=== PATIENT | male | born 1960 | race Caucasian/White ===

== ENCOUNTER 2018-12-01 10:48 | Emergency (ER) | payer MEDICARE ==
[2018-12-01] MEDS ORDERED: Adacel (T-DAP) 0.5 ML SYRINGE ONE (11:10)
== END 2018-12-01 11:20 | disposition home or self-care (01) ==
LOC: BURERS 10:48
DX: S51.811A Laceration without foreign body of right forearm, initial encounter (principal); E78.5 Hyperlipidemia, unspecified; I10 Essential (primary) hypertension; W22.8XXA Striking against or struck by other objects, initial encounter
CPT/HCPCS: 90471; 90715